=== PATIENT | male | born 1995 | race Caucasian/White ===

== ENCOUNTER 2020-01-01 17:21 | Emergency (ER) | payer SELFPAY ==
[2020-01-01] VITALS (7 sets, daily range): BP systolic 107–154; BP diastolic 50–84; PULSE 72–108; RESP 17–25; TEMP 34.8–36.7; O2SAT 98–99; BMI 23.7
--- NOTE | 2020-01-01 18:36 | ED_ITS ---
HPI - General Adult General: Chief complaint: Abdominal Pain Stated complaint: poss heat stroke Time Seen by Provider: 01/01/20 18:29 History of Present Illness: HPI narrative: Patient states that he had a bad weekend because he had a sore tooth was not eating drinking well then drink fluid this morning but he got hot at work and started vomiting. Said after while he is vomiting he threw up some blood along with it. Has now that he has muscle cramps just did not feel good. Does admit to dropping acid he said 3 to 4 weeks ago and smoke marijuana pretty regular basis. Did continue to sweat never got dry. Would like to have an IV. MD complaint: Muscle cramps Onset (ago): hour(s) Associated symptoms: Reports vomiting and other (Muscle cramps); Deny chest pain, dyspnea, headache(s) or rash Review of Systems Const: Denies: fever(s), chills or body aches Eyes: Denies: change in vision or blurry vision ENMT: Denies: throat pain or nasal congestion Card: Denies: chest pain or dyspnea on exertion Resp: Denies: dyspnea, productive cough or non-productive cough GI: Reports: vomiting and hematemesis (After he started vomiting) : Denies: difficulty urinating Musc: Reports: muscle cramps; Denies: extremity pain Skin/Breast: Denies: rash Neuro: Denies: headache(s) Psych: Denies: anxiety or depression Delano/Lymph: Denies: easy bruising Physical Exam Narrative: EXAM NARRATIVE: Patient is very dramatic and he is moving around in the room a lot I do not feel any muscle cramps do not see muscle cramps but patient is muscles are hurting Const: COMMON NORMALS: no acute distress, average body habitus and patient oriented x3 HENMT: COMMON NORMALS: normocephalic HEAD & SCALP: normal to inspection and normocephalic FACE & SINUS: normal facial exam Eye: COMMON NORMALS: conjunctivae normal GENERAL EYE: appearance normal, both eyes and all related structures CONJUNCTIVA: Yes conjunctivae normal Neck/C-Spine: COMMON NORMALS: no JVD Chest: COMMONS NORMALS: normal inspection of the chest Resp: COMMON NORMALS: normal respiratory effort and clear to auscultation bilaterally AUSCULTATION: clear to auscultation bilaterally Cardio: COMMON NORMALS: no JVD, regular rate and regular rhythm RATE: regular rate RHYTHM: regular rhythm GI: COMMON NORMALS: Normal to inspection, nondistended, normoactive bowel sounds present Extremity: COMMON NORMALS: normal to inspection and full ROM Neuro: COMMON NORMALS: patient oriented x3 Course Vital Signs: Vital signs: Vital Signs Temperature 94.7 F L 01/01/20 17:45 Pulse Rate 108 H 01/01/20 17:45 Respiratory Rate 25 H 01/01/20 17:45 Blood Pressure 154/84 01/01/20 17:45 Pulse Oximetry 98 01/01/20 17:45 Coding Level of Care Code ED Pomology Teacher for Liza Yeung
[2020-01-01 18:56] LABS: Basophils # 0.1 10^3/uL (0.0-0.1); Basophils % 0.3 %; Eosinophils # 0.1 10^3/uL (0.0-0.8); Eosinophils % 0.2 %; Hematocrit 51.7 % (42.0-52.0); Hemoglobin 17.6 g/dL (11.7-16.6); Lymphocytes # 1.7 10^3/uL (0.8-4.8); Lymphocytes % 5.8 %; Mean Corpuscular Hemoglobin 29.5 pg (28.0-34.0); Mean Corpuscular Volume 86.7 fL (80-94); Mean Platelet Volume 9.8 fL (7.4-10.4); Monocytes # 2.8 10^3/uL (0.2-0.9); Monocytes % 9.2 %; Neutrophils # 25.21 10^3/uL (1.8-7.7); Neutrophils % 83.9 %; Nucleated Red Blood Cells % 0 %; Platelet Count 294 10^3/cmm (130-400); Red Blood Count 5.96 10^6/uL (4.1-5.3); Red Cell Distribution Width 12.5 % (12.1-15.1)
[2020-01-01 19:16] LABS: Alanine Aminotransferase 33 U/L (0-41); Alkaline Phosphatase 72 IU/L (40-130); Anion Gap 29.1 (5-19); Aspartate Amino Transferase 35 U/L (0-40); Blood Urea Nitrogen 34 mg/dL (6-20); Calcium 11.7 mg/dL (8.5-10.5); Carbon Dioxide 20 mmol/L (22-29); Chloride 94 mmol/L (98-107); Glucose 171 mg/dL (65-115); Lipase 23 U/L (13-60); Osmolality Calculated 289 mOsm/kg (285-295); Potassium 4.1 mmol/L (3.5-5.1); Sodium 139 mmol/L (136-145); Total Bilirubin 1.5 mg/dL (0.15-1.2); Total Protein 9.6 g/dL (6.6-8.7)
[2020-01-01] MEDS: sodium chloride 0.9% 1,000 ML 999 ML IV ×2 (19:21→19:34)
[2020-01-01 19:35] LABS: Lactate (Lactic Acid level) 2.8 mmol/L (0.5-2.2)
[2020-01-01 20:09] LABS: Albumin Level 7.1 g/dL (3.5-5.2); Creatine Phosphokinase 332 U/L (39-308); Globulin 2.5 g/dL (1.3-4.6)
[2020-01-01] MEDS: lactated ringers 1,000 ML 999 ML IV ×2 (20:18→21:38)
[2020-01-01] MEDS: clindamycin 150 mg Capsule 300 MG PO (22:46)
--- NOTE | 2020-01-01 22:58 | PC.NURSE ---
NO C/O. POSITIONS SELF.
--- NOTE | 2020-01-01 22:59 | PC.NURSE ---
FLUIDS INFUSING , WARM PACK TO FACE FOR DENTAL PAIN RELIEF.
[2020-01-01 23:18] LABS: Alanine Aminotransferase 23 U/L (0-41); Albumin Level 4.6 g/dL (3.5-5.2); Alkaline Phosphatase 49 IU/L (40-130); Aspartate Amino Transferase 31 U/L (0-40); Blood Urea Nitrogen 31 mg/dL (6-20); Calcium 9.2 mg/dL (8.5-10.5); Carbon Dioxide 24 mmol/L (22-29); Chloride 100 mmol/L (98-107); Globulin 2.2 g/dL (1.3-4.6); Glomerular Filtration Rate 47.4 mL/min (90-130); Glucose 113 mg/dL (65-115); Osmolality Calculated 282 mOsm/kg (285-295); Sodium 137 mmol/L (136-145); Total Protein 6.8 g/dL (6.6-8.7)
[2020-01-01 23:19] LABS: Creatine Phosphokinase 348 U/L (39-308)
== END 2020-01-01 23:32 | disposition home or self-care (01) ==
PROVIDERS: Emergency Medicine; Emergency Provider Nurse Practitioner Family
DX: R10.9 Unspecified abdominal pain (principal); R11.2 Nausea with vomiting, unspecified; K08.89 Other specified disorders of teeth and supporting structures
CPT/HCPCS: 12345; 36415; 80053; 82550; 83605; 83690; 85025; 96365; 96367; 96375; 99283; 99284; J0131; J7030

== ENCOUNTER 2020-01-02 12:07 | Emergency (ER) | payer SELFPAY ==
[2020-01-02 12:09] VITALS: BP 183/61; PULSE 60; RESP 17; TEMP 36.9; O2SAT 99; BMI 23.7
--- NOTE | 2020-01-02 12:31 | CT_ITS ---
WS: [id number] CT ABDOMEN AND PELVIS WITH CONTRAST HISTORY: Nausea and vomiting with epigastric pain. TECHNIQUE: Imaging performed of the abdomen and pelvis with IV contrast. Single phase imaging of the abdomen. Coronal and sagittal reformats are submitted. All CT scans at [facility] use at least one of these dose optimization techniques: automated exposure control; mA and/or kV adjustment per patient size (includes targeted exams where dose is matched to clinical indication); or iterativ e reconstruction. IV CONTRAST: Omnipaque 300; 95 mL IV. Oral contrast: No DLP: 696.77 mGy.cm COMPARISON: None available. Lower thorax: Lung bases are clear. Heart is normal size. Small hiatal hernia. Mild soft tissue thick ening at the GE junction. Liver/biliary system: Normal size with no intrahepatic dilatation. Gallbladder: Normal. No gallstones or wall thickening. No pericholecystic fluid. Pancreas: Normal. Spleen: Normal. Adrenal glands: Normal. Right kidney: Normal. Left kidney: Normal. Aorta: Normal. Lymphadenopathy: None. Free fluid: None. GI tract: Normal appendix. The appendix contains air. No adjacent inflammation. No GI tract obstructi on. No mucosal thickening. Abdominal wall: Unremarkable abdominal wall. No hernia. Pelvis: Normal. Bones: Unremarkable. CT/CT abdomen pelvis w con* [id number] IMPRESSION: 1. Normal appendix. 2. Small hiatal hernia with mild mucosal thickening at the GE junction. 3. No renal obstruction. 4. No ascites.
--- NOTE | 2020-01-02 12:32 | ED_ITS ---
HPI - General Adult General: Chief complaint: General Medical Stated complaint: N/V Time Seen by Provider: 01/02/20 12:12 History of Present Illness: HPI narrative: This patient is a 24-year-old male presenting with abdominal pain. He was seen here last night with several hours of vomiting and concern for heatstroke and dehydration. He also admits to history of drug use including marijuana and LSD. He had abnormal labs last night with a white count of 30,000 and elevated creatinine. He was given several liters of fluid and labs were rechecked. His creatinine had significantly improved and he was discharged home. He returns today because whenever he tries to drink anything he feels pressure and pain in his upper abdomen. He also has pain in his right lower quadrant today. He has thrown up this morning as well. He denies fever. Denies diarrhea or constipation. He denies any urinary symptoms. He has not had any prior surgeries on his abdomen. He denies history of frequent vomiting or abdominal problems other than several years ago when he quit using K2 and spice. At that time he threw up on a daily basis for several months before it finally resolved. Onset (ago): day(s) (1) Location: abdomen Radiation: non-radiation Severity: severe Quality: aching and dull Pain Consistency: constant Relieving factors: none Exacerbating factors: eating and movement Associated symptoms: Reports malaise, nausea and vomiting; Deny chest pain, dyspnea, headache(s) or rash Review of Systems General: Reports: 10 or more systems reviewed and unremarkable except in HPI and below Const: Reports: malaise; Denies: fever(s), chills or fatigue Eyes: Denies: change in vision ENMT: Denies: odynophagia Card: Denies: chest pain or swelling of feet/ankles Resp: Denies: dyspnea, productive cough or non-productive cough GI: Reports: abdominal pain, nausea and vomiting : Denies: flank pain Musc: Denies: neck pain or back pain Skin/Breast: Denies: rash Neuro: Denies: headache(s), numbness in extremities or weakness in extremities Delano/Lymph: Denies: easy bruising or easy bleeding Physical Exam Const: COMMON NORMALS: no acute distress, patient oriented x3, no limitations and alert GENERAL APPEARANCE: cooperative HENMT: HEAD & SCALP: normal to inspection FACE & SINUS: normal facial exam Eye: GENERAL EYE: appearance normal, both eyes and all related structures Neck/C-Spine: COMMON NORMALS: supple, no meningeal signs and no JVD Chest: COMMONS NORMALS: normal inspection of the chest Resp: COMMON NORMALS: normal respiratory effort, No use of accessory muscles and clear to auscultation bilaterally AUSCULTATION: clear to auscultation bilaterally Cardio: COMMON NORMALS: no JVD, regular rate, regular rhythm and No murmurs present (Cardio) RATE: regular rate RHYTHM: regular rhythm GI: INSPECTION: Yes normal to inspection AUSCULTATION: Yes Hypoactive bowel sounds present PALPATION: Yes Tenderness to palpation present (GI) Details: RLQ and other (Epigastric) Back/Pelvis: COMMON NORMALS: thoracic and lumbar spine normal to inspection Extremity: COMMON NORMALS: normal to inspection Neuro: COMMON NORMALS: patient oriented x3, moves all extremities, no focal motor deficits and no sensory deficits noted SENSORIUM/ORIENTATION: Yes alert MENINGEAL SIGNS: Yes no meningeal signs Psych: COMMON NORMALS: mental status grossly normal, cooperative and normal affect Skin: COMMON NORMALS: no rashes or lesions noted and turgor normal GENERAL SKIN EXAM: no rashes or lesions noted and turgor normal Course ED course: Patient's labs are improved from yesterday. His white count is still elevated and given his abdominal pain CT was ordered. This did not show any findings other than some thickening in the gastric wall. Going to treat him for gastritis and again discussed with him that marijuana can contribute to problems with vomiting. He was encouraged to abstain from drug use. We will also see about helping him find a primary care physician. Vital Signs: Vital signs: Vital Signs Temperature 98.5 F 01/02/20 12:09 Pulse Rate 72 01/02/20 14:24 Respiratory Rate 14 01/02/20 14:24 Blood Pressure 141/59 01/02/20 14:24 Pulse Oximetry 99 01/02/20 14:24 MDM - General Adult Lab Data: Labs: Lab Results 01/02/20 01/02/20 01/02/20 Range/Units 12:28 12:28 12:28 WBC 21.8 H (4.0-10.0) 10^3/ uL RBC 4.92 (4.1-5.3) 10^6/u L Hgb 14.8 (11.7-16.6) g/dL Hct 44.2 (42.0-52.0) % MCV 89.8 (80-94) fL MCH 30.1 (28.0-34.0) pg MCHC 33.5 (30.0-36.0) g/dL RDW 12.9 (12.1-15.1) % Plt Count 208 (130-400) 10^3/c mm MPV 9.4 (7.4-10.4) fL Neut % (Auto) 75.6 % Lymph % (Auto) 13.8 % Bartholomew % (Auto) 9.0 % Eos % (Auto) 0.9 % Baso % (Auto) 0.3 % Neut # (Auto) 16.50 H (1.8-7.7) 10^3/u L Lymph # (Auto) 3.0 (0.8-4.8) 10^3/u L Bartholomew # (Auto) 2.0 H (0.2-0.9) 10^3/u L Eos # (Auto) 0.2 (0.0-0.8) 10^3/u L Baso # (Auto) 0.1 (0.0-0.1) 10^3/u L Nucleated RBC % (a uto) 0 % Nucleated RBCs # 0.0 /100WBC Sodium 137 (136-145) mmol/L Potassium 3.9 (3.5-5.1) mmol/L Chloride 100 (98-107) mmol/L Carbon Dioxide 26 (22-29) mmol/L Anion Gap 14.9 (5-19) BUN 27 H (6-20) mg/dL Creatinine 1.1 (0.7-1.2) mg/dL GFR Calculation 83.7 L (90-130) mL/min Glucose 105 (65-115) mg/dL Calculated Osmolal ity 281 L (285-295) mOsm/k g Lactate 1.0 (0.5-2.2) mmol/L Calcium 9.8 (8.5-10.5) mg/dL Magnesium 2.2 (1.7-2.3) mg/dL Total Bilirubin 1.2 (0.15-1.2) mg/dL AST 34 (0-40) U/L ALT 23 (0-41) U/L Alkaline Phosphata se 52 (40-130) IU/L Creatine Kinase 569 H* (39-308) U/L CK-MB (CK-2) (0-10.4) ng/mL Total Protein 7.2 (6.6-8.7) g/dL Albumin 4.7 (3.5-5.2) g/dL Globulin 2.5 (1.3-4.6) g/dL Lipase 82 H (13-60) U/L Urine Color (Yellow) Urine Appearance (CLEAR) Urine pH (5-7) Ur Specific Gravit y (1.005-1.030) Urine Protein (Negative) Urine Glucose (UA) (Normal) Urine Ketones (Negative) Urine Blood (Negative) Urine Nitrate (Negative) Urine Bilirubin (NEGATIVE) Urine Urobilinogen (Negative) mg/dL Ur Leukocyte Candy ase (Negative) Urine Opiates Scre en (Negative) ng/mL Ur Barbiturates Sc reen (Negative) ng/mL Ur Phencyclidine S crn (Negative) ng/mL Ur Amphetamines Sc reen (Negative) ng/mL U Benzodiazepines Scrn (Negative) ng/mL Urine Cocaine Scre en (Negative) ng/mL U Marijuana (THC) Screen (Negative) ng/mL 01/02/20 01/02/20 01/02/20 Range/Units 12:28 13:50 13:50 WBC (4.0-10.0) 10^3/ uL RBC (4.1-5.3) 10^6/u L Hgb (11.7-16.6) g/dL Hct (42.0-52.0) % MCV (80-94) fL MCH (28.0-34.0) pg MCHC (30.0-36.0) g/dL RDW (12.1-15.1) % Plt Count (130-400) 10^3/c mm MPV (7.4-10.4) fL Neut % (Auto) % Lymph % (Auto) % Bartholomew % (Auto) % Eos % (Auto) % Baso % (Auto) % Neut # (Auto) (1.8-7.7) 10^3/u L Lymph # (Auto) (0.8-4.8) 10^3/u L Bartholomew # (Auto) (0.2-0.9) 10^3/u L Eos # (Auto) (0.0-0.8) 10^3/u L Baso # (Auto) (0.0-0.1) 10^3/u L Nucleated RBC % (a uto) % Nucleated RBCs # /100WBC Sodium (136-145) mmol/L Potassium (3.5-5.1) mmol/L Chloride (98-107) mmol/L Carbon Dioxide (22-29) mmol/L Anion Gap (5-19) BUN (6-20) mg/dL Creatinine (0.7-1.2) mg/dL GFR Calculation (90-130) mL/min Glucose (65-115) mg/dL Calculated Osmolal ity (285-295) mOsm/k g Lactate (0.5-2.2) mmol/L Calcium (8.5-10.5) mg/dL Magnesium (1.7-2.3) mg/dL Total Bilirubin (0.15-1.2) mg/dL AST (0-40) U/L ALT (0-41) U/L Alkaline Phosphata se (40-130) IU/L Creatine Kinase (39-308) U/L CK-MB (CK-2) 6.6 (0-10.4) ng/mL Total Protein (6.6-8.7) g/dL Albumin (3.5-5.2) g/dL Globulin (1.3-4.6) g/dL Lipase (13-60) U/L Urine Color Yellow (Yellow) Urine Appearance Clear (CLEAR) Urine pH 6.5 (5-7) Ur Specific Gravit y 1.010 (1.005-1.030) Urine Protein Neg (Negative) Urine Glucose (UA) Norm (Normal) Urine Ketones 1+ H (Negative) Urine Blood Neg (Negative) Urine Nitrate Negative (Negative) Urine Bilirubin Neg (NEGATIVE) Urine Urobilinogen Norm (Negative) mg/dL Ur Leukocyte Candy ase Negative (Negative) Urine Opiates Scre en Negative (Negative) ng/mL Ur Barbiturates Sc reen Negative (Negative) ng/mL Ur Phencyclidine S crn Negative (Negative) ng/mL Ur Amphetamines Sc reen Positive H (Negative) ng/mL U Benzodiazepines Scrn Negative (Negative) ng/mL Urine Cocaine Scre en Negative (Negative) ng/mL U Marijuana (THC) Screen Positive H (Negative) ng/mL Discharge Plan Discharge Patient Disposition: Home Clinical Impression: Abdominal pain Qualifiers: Abdominal location: generalized Qualified Code(s): R10.84 - Generalized abdominal pain Gastritis Qualifiers: Gastritis type: unspecified gastritis Chronicity: acute Gastritis bleeding: without bleeding Qualified Code(s): K29.00 - Acute gastritis without bleeding Condition: Stable Prescriptions: New omeprazole 40 mg capsule,delayed release(DR/EC) 40 mg PO DAILY Qty: 30 RF: 0 ondansetron HCl 4 mg tablet 4 mg PO Q6H PRN (Reason: nausea and vomiting) Qty: 10 RF: 0 No Action clindamycin HCl 300 mg capsule 300 mg PO TID 7 Days Qty: 21 RF: 0 Discharge Orders: Discharge Order (Routine); Ordered 01/02/20 Ordered By: Fawn Wayne Discharge Diet: Advance as tolerated and Clear Liquid Discharge Activity: Resume usual activity Patient Instructions: Gastritis (ED), Abdominal Pain (ED) Activity Restrictions/Additional Instructions: Take only clear or bland liquids such as water, soda, broth. If you can tolerate those without pain or vomiting then gradually increase to crackers, Jell-O. Take the omeprazole to help treat irritation in your stomach. Make sure to drink plenty of fluids when you are feeling better and out working in the heat. Discharge Date/Time: 01/02/20 14:25 Coding Level of Care Code ED Relay Engineer for Liza Fwd Exam Comprehensive
[2020-01-02 12:36] LABS: Basophils # 0.1 10^3/uL (0.0-0.1); Basophils % 0.3 %; Eosinophils # 0.2 10^3/uL (0.0-0.8); Eosinophils % 0.9 %; Hematocrit 44.2 % (42.0-52.0); Hemoglobin 14.8 g/dL (11.7-16.6); Lymphocytes % 13.8 %; Mean Corpuscular HGB Conc 33.5 g/dL (30.0-36.0); Mean Corpuscular Hemoglobin 30.1 pg (28.0-34.0); Mean Corpuscular Volume 89.8 fL (80-94); Mean Platelet Volume 9.4 fL (7.4-10.4); Neutrophils % 75.6 %; Nucleated Red Blood Cells % 0 %; Platelet Count 208 10^3/cmm (130-400); Red Blood Count 4.92 10^6/uL (4.1-5.3); Red Cell Distribution Width 12.9 % (12.1-15.1); White Blood Count 21.8 10^3/uL (4.0-10.0)
[2020-01-02 12:49] LABS: Alanine Aminotransferase 23 U/L (0-41); Albumin Level 4.7 g/dL (3.5-5.2); Alkaline Phosphatase 52 IU/L (40-130); Anion Gap 14.9 (5-19); Aspartate Amino Transferase 34 U/L (0-40); Blood Urea Nitrogen 27 mg/dL (6-20); Calcium 9.8 mg/dL (8.5-10.5); Carbon Dioxide 26 mmol/L (22-29); Chloride 100 mmol/L (98-107); Globulin 2.5 g/dL (1.3-4.6); Glomerular Filtration Rate 83.7 mL/min (90-130); Glucose 105 mg/dL (65-115); Lipase 82 U/L (13-60); Magnesium 2.2 mg/dL (1.7-2.3); Osmolality Calculated 281 mOsm/kg (285-295); Potassium 3.9 mmol/L (3.5-5.1); Sodium 137 mmol/L (136-145); Total Bilirubin 1.2 mg/dL (0.15-1.2); Total Protein 7.2 g/dL (6.6-8.7)
[2020-01-02 12:52] LABS: Creatine Phosphokinase 569 U/L (39-308)
--- NOTE | 2020-01-02 12:54 | PC.NURSE ---
Tory from [facility] called with [facility]- [phone] Dr Wayne notified
[2020-01-02] MEDS: iohexol 300 mg/mL 100 mL Btl IV (13:04)
[2020-01-02 13:12] LABS: CKMB 6.6 ng/mL (0-10.4)
[2020-01-02] MEDS: ondansetron 2 mg/ML SDV 2 mL 4 MG IVP (13:29)
[2020-01-02] MEDS: haloperidol inj 5 mg/mL INJ 1 mL 2.5 MG IVP (13:29)
[2020-01-02] MEDS: sodium chloride 0.9% 1,000 ML 999 ML IV (13:30)
[2020-01-02] MEDS: famotidine 20 mg/2 mL INJ 40 MG IVP (14:18)
[2020-01-02 14:23] LABS: Add Urine Microscopic? NO
[2020-01-02 14:24] VITALS: BP 141/59; PULSE 72; RESP 14; O2SAT 99
[2020-01-02 14:30] LABS: Urine Appearance Clear (CLEAR); Urine Color Yellow (Yellow)
[2020-01-02 14:31] LABS: Bilirubin Urine Neg (NEGATIVE); Blood Urine Neg (Negative); Glucose Urine UA Norm (Normal); Ketones Urine 1+ (Negative); Leukocyte Esterase Urine Negative (Negative); Nitrate Urine Negative (Negative); Protein Urine Neg (Negative); Urobilinogen Urine Norm (Negative); pH Urine 6.5 (5-7)
[2020-01-02 14:35] LABS: Amphetamines Screen Urine Positive (Negative); Barbiturates Screen Urine Negative (Negative); Benzodiazepines Screen Urine Negative (Negative); Cocaine Screen Urine Negative (Negative); Opiate Screen Urine Negative (Negative); PCP Screen Urine Negative (Negative); THC Screen Urine Positive (Negative)
== END 2020-01-02 14:25 | disposition home or self-care (01) ==
PROVIDERS: Emergency Provider Emergency Medicine
DX: K29.00 Acute gastritis without bleeding (principal)
CPT/HCPCS: 12345; 36415; 74177; 80053; 80306; 81003; 82550; 82553; 83605; 83690; 83735; 85025; 96360; 96361; 96374; 96375; 99283; 99284; J1630; J2405; J3490; J7030; Q9967

== ENCOUNTER 2020-06-15 10:19 | Emergency (ER) | payer SELFPAY ==
--- NOTE | 2020-06-15 10:22 | XRR_ITS ---
PROCEDURE INFORMATION: Exam: XR Left Wrist Exam date and time: 06/15/2020 10:29 AM Age: 25 years old Clinical indication: Patient HX: Lateral aspect left wrist pain x 1 week, no known trauma TECHNIQUE: Imaging protocol: XR Left wrist. Views: 3 or more views. COMPARISON: No relevant prior studies available. FINDINGS: Bones/joints: Radial ulnar joint normal. Carpus is normal. Metacarpals normal. Visualized portions of the phalanges normal. No triquetral fracture. Soft tissues: Normal. XR/XR wrist LT min 3V* [id number] IMPRESSION: Normal wrist.
[2020-06-15 10:35] VITALS: BP 118/66; PULSE 69; RESP 18; TEMP 36.4; O2SAT 96; BMI 23.0
--- NOTE | 2020-06-15 10:37 | ED_ITS ---
HPI - Extremity Injury (Upper) General: Chief Complaint: Extremity Problem,Nontraumatic Stated Complaint: Lt wrist pain Time Seen by Provider: 06/15/20 10:23 Source: patient Mode of arrival: ambulatory Limitations: no limitations History of Present Illness: HPI narrative: 25-year-old male patient presents to the emergency department with several day onset of left wrist pain. He is left-hand dominant, employed at a local [employer], reports pain with movement, denies injury but overuse a possibility. States has noted swelling over the thumb side of the wrist, states naproxen/Aleve does help with pain, also states left wrist splint he has at home has helped as well. MD complaint: injury to: left and wrist Other Extremity Injury: Left: wrist Handedness: left Severity: moderate Relieving factors: immobilization Exacerbating factors: movement of extremity Associated symptoms: Denies neck pain or weakness in extremities Review of Systems General: Reports: 10 or more systems reviewed and unremarkable except in HPI and below Const: Denies: fever(s), chills or diaphoresis Eyes: Denies: blurry vision or eye redness ENMT: Denies: throat pain, dental pain or disequilibrium Card: Denies: chest pain, palpitations or irregular heart rhythm Resp: Denies: dyspnea, productive cough, non-productive cough or wheezing GI: Denies: abdominal pain, nausea or vomiting : Denies: dysuria Musc: Reports: extremity swelling (left wrist) and joint stiffness (left wrist); Denies: neck pain, back pain or joint pain Skin/Breast: Denies: rash or pruritus Neuro: Denies: headache(s), weakness in extremities or behavioral changes Delano/Lymph: Denies: easy bruising Physical Exam Const: COMMON NORMALS: no acute distress, patient oriented x3, healthy appearing and alert GENERAL APPEARANCE: cooperative, comfortable and well hydrated HENMT: COMMON NORMALS: normocephalic, Normal external nose present and moist oral mucous membranes HEAD & SCALP: normocephalic NOSE: Normal external nose present Eye: COMMON NORMALS: Equal, round and reactive pupils present and EOMs intact bilaterally GENERAL EYE: appearance normal, both eyes and all related structures PUPIL: Yes Equal, round and reactive pupils present Neck/C-Spine: COMMON NORMALS: full ROM and no lymphadenopathy GENERAL: Yes normal visual inspection and Yes trachea midline CERVICAL SPINE: Yes cervical ROM normal Lymph: LYMPHATIC: no lymphadenopathy noted Chest: COMMONS NORMALS: normal inspection of the chest Resp: COMMON NORMALS: normal respiratory effort and clear to auscultation bilaterally AUSCULTATION: clear to auscultation bilaterally Cardio: COMMON NORMALS: regular rhythm, S1 normal heart sound present and S2 normal heart sound present RHYTHM: regular rhythm HEART SOUNDS: S1 normal heart sound present and S2 normal heart sound present GI: COMMON NORMALS: Soft to palpation and non-tender INSPECTION: Yes normal to inspection PALPATION: Yes Soft to palpation : COMMON NORMALS: Yes no CVA tenderness BLADDER/KIDNEY EXAM: Yes no CVA tenderness Back/Pelvis: COMMON NORMALS: no CVA tenderness and thoracic and lumbar spine normal to inspection Extremity: COMMON NORMALS: normal to inspection, full ROM, capillary refill normal and no pedal edema GENERAL: Yes normal exam except as noted LEFT UPPER EXTREMITY: Yes wrist Left wrist: Yes inspection (edema and tenderness over dorsum wrist, radial side), Yes ROM (Pronation supination with flexion extension present) and Yes neurovascular exam (Intact) Neuro: COMMON NORMALS: patient oriented x3 and no focal motor deficits SENSORIUM/ORIENTATION: Yes alert Psych: COMMON NORMALS: mental status grossly normal, Normal thought process present and cooperative ACTIVITY/MOTOR BEHAVIOR: Yes appropriate eye contact THOUGHT PROCESS: Normal thought process present Skin: COMMON NORMALS: no rashes or lesions noted and turgor normal GENERAL SKIN EXAM: no rashes or lesions noted and turgor normal Course Vital Signs: Vital signs: Vital Signs Temperature 97.6 F 06/15/20 10:35 Pulse Rate 69 06/15/20 10:35 Respiratory Rate 18 06/15/20 10:35 Blood Pressure 118/66 06/15/20 10:35 Pulse Oximetry 96 06/15/20 10:35 MDM - Extremity Injury (Upper) Imaging Data^: Other Xray: Radiologist's impression: [address] [address] XRay Report Signed Patient: dE Amado #: [id number] : 1995Acct#:[id number] Age/Sex: 25 / MADM Date: 06/15/20 Loc: ERRoom/Bed: Attending Dr: Ordering Provider/Ordering MD: Jeanna Kraft Date of Service: 06/15/20 Procedure(s): XR wrist LT min 3V* [id number] Accession Number(s): [id number] Report Number: [id number] PROCEDURE INFORMATION: Exam: XR Left Wrist Exam date and time: 06/15/2020 10:29 AM Age: 25 years old Clinical indication: Patient HX: Lateral aspect left wrist pain x 1 week, no known trauma TECHNIQUE: Imaging protocol: XR Left wrist. Views: 3 or more views. COMPARISON: No relevant prior studies available. FINDINGS: Bones/joints: Radial ulnar joint normal. Carpus is normal. Metacarpals normal. Visualized portions of the phalanges normal. No triquetral fracture. Soft tissues: Normal. XR/XR wrist LT min 3V* [id number] IMPRESSION: Normal wrist. Dictated By:Robby Triplett MD Signed By:Robby Triplett MDSigned Date/Time:06/15/201106 DD/ 110 Discharge Plan Discharge Patient Disposition: Home Clinical Impression: Left wrist tendinitis Acute wrist pain Qualifiers: Laterality: left Qualified Code(s): M25.532 - Pain in left wrist Condition: Stable Prescriptions: New methylprednisolone 4 mg tablets,dose pack See Rx Instructions .ROUTE .COMPLEX Qty: 21 RF: 0 naproxen 500 mg tablet 500 mg PO BID PRN (Reason: pain) Qty: 30 RF: 0 No Action omeprazole 40 mg capsule,delayed release(DR/EC) 40 mg PO DAILY Qty: 30 RF: 0 ondansetron HCl 4 mg tablet 4 mg PO Q6H PRN (Reason: nausea and vomiting) Qty: 10 RF: 0 Discharge Orders: Discharge ED (Routine); Ordered 06/15/20 Ordered By: Jeanna Kraft Discharge Diet: Usual diet Discharge Activity: Limit activity as instructed Patient Instructions: Wrist Injury (ED), Tendinitis (ED), Wrist Sprain (ED) Activity Restrictions/Additional Instructions: Wear Velcro wrist splint you have at home as much as possible, wear at night to help with pain. Wear at work to help with stability Prescription of naproxen has been provided, do not take [id number] medication such as ibuprofen, Aleve or Advil as duplication of therapy can occur May take Tylenol to supplement for pain needs Follow-up with your primary care provider if pain is not improved in the next several days. Stand Alone Forms: Work/School Release Coding Level of Care Code ED Child Care Worker for Liza Fwd Exam Comprehensive
[2020-06-15] MEDS: acetaminophen 500 mg Tablet 1000 MG PO (11:17)
== END 2020-06-15 11:28 | disposition home or self-care (01) ==
PROVIDERS: Emergency Provider Nurse Practitioner Family
DX: M77.8 Other enthesopathies, not elsewhere classified (principal)
CPT/HCPCS: 12345; 73110; 99281; 99283

== ENCOUNTER 2022-01-23 12:16 | Outpatient (CLI) | payer OTHER, MEDICAID, SELFPAY ==
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
== END 2022-01-23 12:17 | disposition home or self-care (01) ==
LOC: RAD 12:19
PROVIDERS: Visit Provider Family Medicine
DX: M54.50 Low back pain, unspecified (principal); S39.92XA Unspecified injury of lower back, initial encounter; M85.88 Other specified disorders of bone density and structure, other site; M47.814 Spondylosis without myelopathy or radiculopathy, thoracic region
CPT/HCPCS: 72020; 72100

== ENCOUNTER 2022-06-17 15:12 | Emergency (ER) | payer OTHER, MEDICAID, SELFPAY ==
[2022-06-17 15:15] VITALS: BP 150/55; PULSE 56; RESP 16; TEMP 36.9; O2SAT 98; BMI 23.0
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
[2022-06-17] MEDS: iohexol 350 mg/mL 500 mL Btl (per mL) IV (15:57)
== END 2022-06-17 17:18 | disposition home or self-care (01) ==
PROVIDERS: Emergency Provider Emergency Medicine
DX: Z04.1 Encounter for examination and observation following transport accident (principal); F10.129 Alcohol abuse with intoxication, unspecified; Y90.9 Presence of alcohol in blood, level not specified; F17.290 Nicotine dependence, other tobacco product, uncomplicated; V89.2XXA Person injured in unspecified motor-vehicle accident, traffic, initial encounter
CPT/HCPCS: 70450; 71260; 72125; 99285; Q9967